=== PATIENT | male | born 1965 | race Caucasian/White ===

== ENCOUNTER 2018-04-14 13:49 | Emergency (ER) | payer OTHER ==
[~2018-04-14] VITALS: Ht 177.8 cm; Wt 105.0 kg
[2018-04-14] MEDS ORDERED: fentaNYL/PF 50MCG/1 ML 2ML syringe IV ONE ×2 (14:15→15:05)
[2018-04-14] MEDS ORDERED: normal saline 1000ML IV soln IVB ONE (14:15)
[2018-04-14] MEDS ORDERED: propofol 10mg/ml 20ml vial IV ONE (14:25)
[2018-04-14] MEDS ORDERED: ondansetron/PF 4mg/2ml inj IV ONE (15:05)
[2018-04-14] MEDS ORDERED: HYDR-3965 PO (15:25)
[2018-04-14 15:36] VITALS: BP 139/86
== END 2018-04-14 16:05 | disposition home or self-care (01) ==
LOC: ER 13:50
DX: S43.015A Anterior dislocation of left humerus, initial encounter (principal); V19.88XA Pedal cyclist (driver) (passenger) injured in other specified transport accidents, initial encounter; Y93.89 Activity, other specified; Y92.413 State road as the place of occurrence of the external cause; Y99.9 Unspecified external cause status
CPT/HCPCS: 23650; 73020; 73030; 96374; 96375; 96376; 99152; 99285; J2704; J3010; J7030; 99284